=== PATIENT | female | born 1970 | race Caucasian/White ===

== ENCOUNTER 2017-01-30 08:36 | Emergency (ER) ==
[2017-01-30 08:43] VITALS: BP 98/63
[2017-01-30 09:10] LABS: MANUAL DIFF NEEDED? NO
[2017-01-30 09:13] LABS: BASO% 0.3 % (0.0-0.8); EOS# 0.08 X1000 (0.0-0.7); EOS% 1.2 % (0.0-10.0); HEMATOCRIT 33.9 % (37.0-47.0); HEMOGLOBIN 10.5 g/dL (12.0-16.0); IMM GRAN# 0.02 X1000 (0.0-0.04); IMM GRAN% 0.3 % (0.0-0.5); LYMPH# 1.64 X1000 (1.2-3.4); LYMPH% 24.2 % (20.5-51.1); MCH 28.4 PG (27-31); MCV 91.6 FL (81-99); MONO# 0.47 X1000 (0.11-0.59); MONO% 6.9 % (1.7-9.3); MPV 8.6 FL (7.4-10.4); NEUT% 67.1 % (42.2-75.2); PLT 232 X1000 (130-400)
[2017-01-30 09:17] LABS: URINE CULTURE PL NEEDED? NO; URINE SOURCE VOIDED
--- NOTE | 2017-01-30 09:27 | PROVIDER DOCUMENTATION ---
HPI-Psychological Disorder - General Source: patient, family - History of Present Illness-Psych Onset/Duration: reports: gradual, other (Gradual increase in levels of depression since Whipple procedure 17 months ago) Timing: reports: still present, getting worse Severity: reports: moderate, severe Situational problems related to:: reports: other (Family conflicts with a nephew she helped raise) Psychiatric Complaints: reports: anxiety, depressed, insomnia, suicidal ideation Substance Use: reports: none/never Previous psych related hospitalizations?: No Patient arrived by:: private car (She asked her mother to bring her) Similar Symptoms Previously?: No (Pt has prior hx of depression but not SI) - Suicidal Ideation Suicide Risk Assessment: depressed, chronic illness, available lethal weapons, frightened friends-family (Mother states she is terrified she will find pt because of the severity of pt's depression). negative: no social supports, organized plan Clinician's estimation of suicide risk?: high risk <Janeth Proctor - Last Filed: 01/30/17 09:37> <Cody Mayen - Last Filed: 01/30/17 14:22> - General Chief Complaint: Psych Stated Complaint: SUICIDAL Time Seen by Provider: 01/30/17 08:49 Allergies/Adverse Reactions: Patient Allergies Allergy/AdvReac Type Severity Reaction Status Date / Time hydromorphone HCl * Allergy ANAPHYLAXIS Verified 01/30/17 08:43 [From Dilaudid] metoclopramide HCl * Allergy ANAPHYLAXIS Verified 01/30/17 08:43 [From Reglan] ondansetron HCl * AdvReac Unknown Verified 01/30/17 08:43 [From Zofran (as hydrochloride)] Home Medications: Home Medication List Medication Instructions Recorded Confirmed Last Taken Type Bupropion S.r. [Wellbutrin Sr] 150 mg PO BID 03/25/16 01/30/17 03/25/16 06:30 History Diazepam 10 mg PO BID 03/25/16 01/30/17 03/25/16 06:30 History Furosemide [Lasix] 20 mg PO PRN PRN 03/25/16 01/30/17 03/25/16 06:30 History Gemfibrozil 600 mg PO BID 03/25/16 01/30/17 03/25/16 06:30 History Lipase/Protease/Amylase [Creon Dr 1 each PO 4XDAY 03/25/16 01/30/17 03/25/16 06: 30 History 24,000 Units Capsule] Lubiprostone [Amitiza] 24 microgm PO BID 03/25/16 01/30/17 03/25/16 06:30 History Metformin HCl [Glucophage] 850 mg PO PRN PRN 03/25/16 01/30/17 Unknown History Omeprazole 40 mg PO BID 03/25/16 01/30/17 03/25/16 06:30 History Trazodone [Desyrel] 200 mg PO QHS 03/25/16 01/30/17 03/24/16 20:00 History Fentanyl 50 Microgm/Hr Patch 1 each TD Q72H #10 patch 03/29/16 01/30/17 Unknown Rx [Duragesic 50 Microgm/Hr Patch] Paroxetine HCl 20 mg PO DAILY 01/30/17 01/30/17 Unknown History Sennosides [Senokot] 1 each PO DIRECTED PRN 01/30/17 01/30/17 Unknown History - History of Present Illness-Psych Nature of Presenting Problem: 46 yo WF presents to ED with cc of suicidal ideation. Pt denies any previous attempts and states she does not want to hurt herself but can't help feeling like she wants to . Pt has hx of chronic pain, Whipple procedure 17 months ago, and weight loss of ~100 lbs in the time since her Whipple procedure. She reports lack of appetite, difficulty drinking fluids, disrupted sleep patterns, and feelings of extensive hopelessness. Pt has been treated for anxiety and depression. Pt denies any hospitalizations for psychiatric reasons. Pt has supportive mother and adult sons. Pt does report some recent family conflict with members outside her immediate family. Upon arrival to ED, pt appears calm and has a depressed affect. She denies any other medical issues at this time. (Janeth Proctor) Review of Systems - Adult - REVIEW OF SYSTEMS - ADULT Constitutional: reports: no symptoms reported. denies: chills, fever Eyes: reports: no symptoms reported. denies: blurred vision, double vision Ears, Nose, Mouth & Throat: reports: no symptoms reported. denies: ear discharge, nose pain Cardiovascular: reports: no symptoms reported. denies: chest pain, heart murmur Respiratory: reports: no symptoms reported. denies: cough, shortness of breath Gastrointestinal: reports: abdominal pain, poor appetite Genitourinary: reports: no symptoms reported. denies: dysuria, flank pain Musculoskeletal: reports: no symptoms reported Integumentary: reports: no symptoms reported. denies: hives, itching Neurological: reports: loss of balance (Pt uses cane due to frequent falls) Psychiatric: reports: anxiety, anti-depressant use, depression, insomnia, suicidal thoughts. denies: alcohol/drug dependence Endocrine: reports: no symptoms reported. denies: cold intolerance, heat intolerance Hematologic/Lymphatic: reports: no symptoms reported. denies: blood clots, low blood count Allergic/Immunologic: reports: no symptoms reported. denies: allergic reactions , eczema All Other Systems: Reviewed and Negative <Janeth Proctor - Last Filed: 01/30/17 09:37> Past History - Adult - PAST MEDICAL HISTORY-ADULT Review of Records: reports: Old Records Reviewed, Nursing Assessment Review, Medications Reviewed Major Childhood Illnesses: reports: denies history Gastrointestinal: reports: GI bleed, pancreatitis Psychiatric: reports: anxiety Other Conditions: reports: denies history - PRIOR SURGERIES/PROCEDURES Surgical/Procedure History: reports: other (whipple sx 7mths ago) - IMMUNIZATION STATUS Childhood Immunizations: See Nurse Assessment Flu Vaccine: See Nurse Assessment - FAMILY HISTORY Family History: reviewed, not pertinent - SOCIAL HISTORY Smoking: non-smoker Substance Use: none/never Alcohol Use Frequency: never <Janeth Proctor - Last Filed: 01/30/17 09:37> Physical Exam-Psych Focus - Physical Exam-Psych Initial Vital Signs Reviewed: Yes Appearance: appropriate appearance, appropriate insight, neat, no memory impairment, alert, anxious, mild distress, moderate distress. negative: combative, impaired insight, impaired recent memory, impaired remote memory Neurological: alert, calm, oriented x 3, anxious, depressed affect Behavior/Eye Contact/Speech: cooperative, good eye contact, normal speech. negative: avoids eye contact, refused to answer, threatening eye contact, belligerent, compulsive, uncooperative Thoughts/Hallucinations: normal thought pattern, no apparent hallucination HENMT: normocephalic/atraumatic, moist mucous membranes Neck: full range of motion, supple Respiratory: no respiratory distress, no accessory muscle use Cardiovascular: normal peripheral pulses, regular rate, rhythm Abdominal Exam: non tender, soft, other (large scar on abdomen from full Whipple 17 months ago) Lymphatic: no adenopathy Back Exam: normal inspection, no vertebral tenderness Extremity: normal range of motion, non-tender, normal gait Integumentary: normal color, normal turgor, warm/dry <Janeth Proctor - Last Filed: 01/30/17 09:37> Progress <Janeth Proctor - Last Filed: 01/30/17 09:37> - REASSESSMENT Reassessment #1 Time Reassessed: 14:21 Status: other (Pt is stable. Will transfer to ER Dr. Jennings) <Cody Mayen - Last Filed: 01/30/17 14:22> - PLAN OF CARE/RESULTS Progress/Plan/Lab Results: Laboratory Results - last 24 hr 01/30/17 01/30/17 01/30/17 08:50 08:50 09:03 WBC RBC Hgb Hct MCV MCH MCHC RDW Std Deviation Plt Count MPV Immature Gran % (Auto) Neut % (Auto) Lymph % (Auto) Dougherty % (Auto) Eos % (Auto) Baso % (Auto) Immature Gran # (Auto) Neut # (Auto) Lymph # (Auto) Dougherty # (Auto) Eos # (Auto) Baso # (Auto) Sodium 142 Potassium 4.2 Chloride 104 Carbon Dioxide 29 Anion Gap 9 BUN 11 Creatinine 0.8 Estimated GFR/1.73 m2 > 60 BUN/Creatinine Ratio 14 Glucose 156 H Calculated Osmolality 286 Calcium 9.7 Total Bilirubin 0.20 AST 13 ALT 7 L Alkaline Phosphatase 115 H Total Protein 6.7 Albumin 4.0 Globulin 3.0 Albumin/Globulin Ratio 1.0 Amylase Lipase TSH Free T4 Urine Source VOIDED Urine Color YELLOW Urine Clarity CLEAR Urine pH 5.0 Ur Specific [place] 1.010 Urine Protein TRACE A Urine Ketones NEGATIVE Urine Blood NEGATIVE Urine Nitrite NEGATIVE Urine Bilirubin NEGATIVE Urine Urobilinogen NORMAL Urine Microscopic RBC Not Reportable Urine WBC TRACE A Urine Microscopic WBC <10 Ur Epithelial Cells <10 Urine Glucose NEGATIVE Salicylates Urine Opiates Screen NONE DETECTED Ur Oxycodone Screen NONE DETECTED Urine Methadone Screen NONE DETECTED Acetaminophen Ur Barbituates Screen PRESUMPTIVE POSITIVE A Ur Tricyclics Screen NONE DETECTED Ur Phencyclidine Scrn NONE DETECTED Ur Amphetamines Screen NONE DETECTED U Methamphetamines Scrn NONE DETECTED Urine MDMA Screen NONE DETECTED U Benzodiazepines Scrn NONE DETECTED Urine Cocaine Screen NONE DETECTED U Cannabinoids Screen NONE DETECTED Plasma/Serum Ethyl Alc 01/30/17 01/30/17 01/30/17 09:03 09:03 09:03 WBC 6.77 RBC 3.70 L Hgb 10.5 L Hct 33.9 L MCV 91.6 MCH 28.4 MCHC 31.0 L RDW Std Deviation 12.6 Plt Count 232 MPV 8.6 Immature Gran % (Auto) 0.3 Neut % (Auto) 67.1 Lymph % (Auto) 24.2 Dougherty % (Auto) 6.9 Eos % (Auto) 1.2 Baso % (Auto) 0.3 Immature Gran # (Auto) 0.02 Neut # (Auto) 4.54 Lymph # (Auto) 1.64 Dougherty # (Auto) 0.47 Eos # (Auto) 0.08 Baso # (Auto) 0.02 Sodium Potassium Chloride Carbon Dioxide Anion Gap BUN Creatinine Estimated GFR/1.73 m2 BUN/Creatinine Ratio Glucose Calculated Osmolality Calcium Total Bilirubin AST ALT Alkaline Phosphatase Total Protein Albumin Globulin Albumin/Globulin Ratio Amylase Lipase TSH 3.02 Free T4 0.97 Urine Source Urine Color Urine Clarity Urine pH Ur Specific [place] Urine Protein Urine Ketones Urine Blood Urine Nitrite Urine Bilirubin Urine Urobilinogen Urine Microscopic RBC Urine WBC Urine Microscopic WBC Ur Epithelial Cells Urine Glucose Salicylates Urine Opiates Screen Ur Oxycodone Screen Urine Methadone Screen Acetaminophen Ur Barbituates Screen Ur Tricyclics Screen Ur Phencyclidine Scrn Ur Amphetamines Screen U Methamphetamines Scrn Urine MDMA Screen U Benzodiazepines Scrn Urine Cocaine Screen U Cannabinoids Screen Plasma/Serum Ethyl Alc 01/30/17 09:03 WBC RBC Hgb Hct MCV MCH MCHC RDW Std Deviation Plt Count MPV Immature Gran % (Auto) Neut % (Auto) Lymph % (Auto) Dougherty % (Auto) Eos % (Auto) Baso % (Auto) Immature Gran # (Auto) Neut # (Auto) Lymph # (Auto) Dougherty # (Auto) Eos # (Auto) Baso # (Auto) Sodium Potassium Chloride Carbon Dioxide Anion Gap BUN Creatinine Estimated GFR/1.73 m2 BUN/Creatinine Ratio Glucose Calculated Osmolality Calcium Total Bilirubin AST ALT Alkaline Phosphatase Total Protein Albumin Globulin Albumin/Globulin Ratio Amylase 27 Lipase 16 TSH Free T4 Urine Source Urine Color Urine Clarity Urine pH Ur Specific [place] Urine Protein Urine Ketones Urine Blood Urine Nitrite Urine Bilirubin Urine Urobilinogen Urine Microscopic RBC Urine WBC Urine Microscopic WBC Ur Epithelial Cells Urine Glucose Salicylates < 3.00 L Urine Opiates Screen Ur Oxycodone Screen Urine Methadone Screen Acetaminophen < 1.2 L Ur Barbituates Screen Ur Tricyclics Screen Ur Phencyclidine Scrn Ur Amphetamines Screen U Methamphetamines Scrn Urine MDMA Screen U Benzodiazepines Scrn Urine Cocaine Screen U Cannabinoids Screen Plasma/Serum Ethyl Alc Vital Signs Temp Pulse Resp BP Pulse Ox 01/30/17 08:39 97.2 F L 78 18 98/63 100 hydromorphone HCl * [From Dilaudid] Allergy (Verified 01/30/17 08:43) ANAPHYLAXIS metoclopramide HCl * [From Reglan] Allergy (Verified 01/30/17 08:43) ANAPHYLAXIS ondansetron HCl * [From Zofran (as hydrochloride)] Adverse Reaction (Verified 08:43) Unknown Bupropion S.r. [Wellbutrin Sr] 150 mg PO BID 03/25/16 Diazepam 10 mg PO BID 03/25/16 Furosemide [Lasix] 20 mg PO PRN PRN 03/25/16 Gemfibrozil 600 mg PO BID 03/25/16 Lipase/Protease/Amylase [Creon Dr 24,000 Units Capsule] 1 each PO 4XDAY Lubiprostone [Amitiza] 24 microgm PO BID 03/25/16 Metformin HCl [Glucophage] 850 mg PO PRN PRN 03/25/16 Omeprazole 40 mg PO BID 03/25/16 Trazodone [Desyrel] 200 mg PO QHS 03/25/16 Fentanyl 50 Microgm/Hr Patch [Duragesic 50 Microgm/Hr Patch] 1 each TD Q72H #10 patch 03/29/16 Paroxetine HCl 20 mg PO DAILY 01/30/17 Sennosides [Senokot] 1 each PO DIRECTED PRN 01/30/17 Laboratory 01/30/17 01/30/17 01/30/17 09:03 09:03 09:03 WBC 6.77 RBC 3.70 L Hgb 10.5 L Hct 33.9 L MCV 91.6 MCH 28.4 MCHC 31.0 L RDW Std Deviation 12.6 Plt Count 232 MPV 8.6 Immature Gran % (Auto) 0.3 Neut % (Auto) 67.1 Lymph % (Auto) 24.2 Dougherty % (Auto) 6.9 Eos % (Auto) 1.2 Baso % (Auto) 0.3 Immature Gran # (Auto) 0.02 Neut # (Auto) 4.54 Lymph # (Auto) 1.64 Dougherty # (Auto) 0.47 Eos # (Auto) 0.08 Baso # (Auto) 0.02 Sodium Potassium Chloride Carbon Dioxide Anion Gap BUN Creatinine Estimated GFR/1.73 m2 BUN/Creatinine Ratio Glucose Calculated Osmolality Calcium Total Bilirubin AST ALT Alkaline Phosphatase Total Protein Albumin Globulin Albumin/Globulin Ratio Amylase 27 Lipase 16 TSH Free T4 Urine Source Urine Color Urine Clarity Urine pH Ur Specific [place] Urine Protein Urine Ketones Urine Blood Urine Nitrite Urine Bilirubin Urine Urobilinogen Urine Microscopic RBC Urine WBC Urine Microscopic WBC Ur Epithelial Cells Urine Glucose Salicylates < 3.00 L Urine Opiates Screen Ur Oxycodone Screen Urine Methadone Screen Acetaminophen < 1.2 L Ur Barbituates Screen Ur Tricyclics Screen Ur Phencyclidine Scrn Ur Amphetamines Screen U Methamphetamines Scrn Urine MDMA Screen U Benzodiazepines Scrn Urine Cocaine Screen U Cannabinoids Screen Plasma/Serum Ethyl Alc 01/30/17 01/30/17 01/30/17 09:03 09:03 08:50 WBC RBC Hgb Hct MCV MCH MCHC RDW Std Deviation Plt Count MPV Immature Gran % (Auto) Neut % (Auto) Lymph % (Auto) Dougherty % (Auto) Eos % (Auto) Baso % (Auto) Immature Gran # (Auto) Neut # (Auto) Lymph # (Auto) Dougherty # (Auto) Eos # (Auto) Baso # (Auto) Sodium 142 Potassium 4.2 Chloride 104 Carbon Dioxide 29 Anion Gap 9 BUN 11 Creatinine 0.8 Estimated GFR/1.73 m2 > 60 BUN/Creatinine Ratio 14 Glucose 156 H Calculated Osmolality 286 Calcium 9.7 Total Bilirubin 0.20 AST 13 ALT 7 L Alkaline Phosphatase 115 H Total Protein 6.7 Albumin 4.0 Globulin 3.0 Albumin/Globulin Ratio 1.0 Amylase Lipase TSH 3.02 Free T4 0.97 Urine Source Urine Color Urine Clarity Urine pH Ur Specific [place] Urine Protein Urine Ketones Urine Blood Urine Nitrite Urine Bilirubin Urine Urobilinogen Urine Microscopic RBC Urine WBC Urine Microscopic WBC Ur Epithelial Cells Urine Glucose Salicylates Urine Opiates Screen NONE DETECTED Ur Oxycodone Screen NONE DETECTED Urine Methadone Screen NONE DETECTED Acetaminophen Ur Barbituates Screen PRESUMPTIVE POSITIVE A Ur Tricyclics Screen NONE DETECTED Ur Phencyclidine Scrn NONE DETECTED Ur Amphetamines Screen NONE DETECTED U Methamphetamines Scrn NONE DETECTED Urine MDMA Screen NONE DETECTED U Benzodiazepines Scrn NONE DETECTED Urine Cocaine Screen NONE DETECTED U Cannabinoids Screen NONE DETECTED Plasma/Serum Ethyl Alc 01/30/17 08:50 WBC RBC Hgb Hct MCV MCH MCHC RDW Std Deviation Plt Count MPV Immature Gran % (Auto) Neut % (Auto) Lymph % (Auto) Dougherty % (Auto) Eos % (Auto) Baso % (Auto) Immature Gran # (Auto) Neut # (Auto) Lymph # (Auto) Dougherty # (Auto) Eos # (Auto) Baso # (Auto) Sodium Potassium Chloride Carbon Dioxide Anion Gap BUN Creatinine Estimated GFR/1.73 m2 BUN/Creatinine Ratio Glucose Calculated Osmolality Calcium Total Bilirubin AST ALT Alkaline Phosphatase Total Protein Albumin Globulin Albumin/Globulin Ratio Amylase Lipase TSH Free T4 Urine Source VOIDED Urine Color YELLOW Urine Clarity CLEAR Urine pH 5.0 Ur Specific [place] 1.010 Urine Protein TRACE A Urine Ketones NEGATIVE Urine Blood NEGATIVE Urine Nitrite NEGATIVE Urine Bilirubin NEGATIVE Urine Urobilinogen NORMAL Urine Microscopic RBC Not Reportable Urine WBC TRACE A Urine Microscopic WBC <10 Ur Epithelial Cells <10 Urine Glucose NEGATIVE Salicylates Urine Opiates Screen Ur Oxycodone Screen Urine Methadone Screen Acetaminophen Ur Barbituates Screen Ur Tricyclics Screen Ur Phencyclidine Scrn Ur Amphetamines Screen U Methamphetamines Scrn Urine MDMA Screen U Benzodiazepines Scrn Urine Cocaine Screen U Cannabinoids Screen Plasma/Serum Ethyl Alc Orders Category Date Time Status c-spine [CERVICAL SPINE COMPLETE] [RAD] Stat Exams 01/30/17 09:17 Draft ACETAMINOPHEN [TDM] Stat Lab 01/30/17 09:03 Completed ALCOHOL BLOOD Stat Lab 01/30/17 09:03 Completed AMYLASE [CHEM] Stat Lab 01/30/17 09:03 Completed CBC WITH ELECTRONIC DIFF [HEME] Stat Lab 01/30/17 09:03 Completed COMPREHENSIVE METABOLIC PANEL [CHEM] Stat Lab 01/30/17 09:03 Completed FREE T4 Stat Lab 01/30/17 09:03 Results LIPASE [CHEM] Stat Lab 01/30/17 09:03 Completed SALICYLATES [TDM] Stat Lab 01/30/17 09:03 Completed TSH Stat Lab 01/30/17 09:[address] W/POSS RFLX CULT [URINALYSIS] Stat Lab 01/30/17 08:50 [address] DRUG SCREEN [address] Stat Lab 01/30/17 08:50 Completed VITAMIN B12 Stat Lab 01/30/17 09:03 Results Acetaminophen [Tylenol] Med 01/30/17 12:22 Discontinued 1,000 mg .ROUTE .STK-MED ONE Acetaminophen [Tylenol] Med 01/30/17 12:20 Discontinued 1,000 mg PO NOW ONE (Cody Mayen) Departure <Janeth Proctor - Last Filed: 01/30/17 09:37> - Departure Time of Disposition Order: 14:22 Certified Medical Emergency: Emergent <Cody Mayen - Last Filed: 01/30/17 14:22> - Departure DIAGNOSIS: Suicidal ideations Disposition: [facility] Condition: Stable Referrals: Kolton Root [Primary Care Provider] - Attestation - Scribe Verification/Attestation Scribe:: Janeth Proctor Acting as Scribe for:: Cody Mayen Scribe documention review:: This chart was documented by a scribe and accurately reflects the service the provider performed and the decisions made by the provider. - Physician/ FABY Attestation Patient care was provided by Advanced Practice Provider:: No <Janeth Proctor - Last Filed: 01/30/17 09:37> Physician Attestation
[2017-01-30 09:29] LABS: AGAP 9; ALKALINE PHOSPHATASE 115 U/L (32-104); BUN 11 mg/dL (8-22); CALCIUM 9.7 mg/dL (8.8-10.2); CHLORIDE 104 mmol/L (98-107); COSMO 286; GOT 13 U/L (10-30); GPT 7 U/L (10-36); POTASSIUM 4.2 mmol/L (3.5-5.1); SODIUM 142 mmol/L (136-145); TCO2 29 mmol/L (25-35); TOTAL PROTEIN 6.7 g/dL (6.3-8.3)
[2017-01-30 09:34] LABS: BILIRUBIN URINE NEGATIVE (NEGATIVE); BLOOD URINE NEGATIVE (NEGATIVE); CLARITY CLEAR (CLEAR); COLOR YELLOW; GLUCOSE URINE NEGATIVE (NEGATIVE); LEUKOCYTES URINE TRACE (NEGATIVE); NITRITE URINE NEGATIVE (NEGATIVE); PROTEIN URINE TRACE mg/dL (NEGATIVE); UR AMPHETAMINES QUAL NONE DETECTED (NONE DETECT); UR BARBITUATES QUAL PRESUMPTIVE POSITIVE (NONE DETECT); UR BENZODIAZEPIN QUAL NONE DETECTED (NONE DETECT); UR CANNABINOIDS QUAL NONE DETECTED (NONE DETECT); UR COCAINE QUAL NONE DETECTED (NONE DETECT); UR MDMA QUAL NONE DETECTED (NONE DETECT); UR METHADONE QUAL NONE DETECTED (NONE DETECT); UR METHAMPHETAMINE QUAL NONE DETECTED (NONE DETECT); UR OPIATES QUAL NONE DETECTED (NONE DETECT); UR OXYCODONE QUAL NONE DETECTED (NONE DETECT); UR PCP QUAL NONE DETECTED (NONE DETECT); UR TCA QUAL NONE DETECTED (NONE DETECT); UROBILINOGEN URINE NORMAL
[2017-01-30 09:57] LABS: ACETAMINOPHEN < 1.2 ug/mL (10-30); AMYLASE 27 U/L (20-200); LIPASE 16 U/L (13-60)
--- NOTE | 2017-01-30 10:06 | Diag Imaging Result Document ---
PROCEDURE NAME: CERVICAL SPINE COMPLETE - 01/30/2017 X-RAYS CERVICAL SPINE 6 VIEWS, 01/30/2017: COMPARISON: None. FINDINGS: Alignment is anatomic. Vertebral body heights and intervertebral disc spaces are preserved. Neural foramina are patent. Soft tissues are clear. IMPRESSION: Negative exam.
[2017-01-30 10:08] LABS: FREE T4 0.97 ng/dL (0.93-1.70)
[2017-01-30 10:13] LABS: URINE EPITHELIAL CELLS <10 /HPF (<10); URINE WBC <10 /HPF (<10)
[2017-01-30] MEDS ORDERED: TYLENOL PO ONE (12:20)
[2017-01-30] MEDS ORDERED: TYLENOL ONE (12:22)
== END 2017-01-30 15:33 ==
LOC: P.ED 08:36
DX: R45.851 Suicidal ideations (principal); R10.9 Unspecified abdominal pain; R26.81 Unsteadiness on feet; R29.6 Repeated falls; F41.9 Anxiety disorder, unspecified; F32.9 Major depressive disorder, single episode, unspecified; Z87.19 Personal history of other diseases of the digestive system; Z79.899 Other long term (current) drug therapy
CPT/HCPCS: 36415; 72050; 80053; 80305; 81001; 82150; 82607; 83690; 84439; 84443; 85025; G0480; 80320; 80324; 80329